=== PATIENT | female | born 1985 | race Caucasian/White ===

== ENCOUNTER 2024-01-28 12:30 | Emergency (ER) | payer BC ==
[2024-01-28] MEDS: hydrOXYzine HCl 25 MG Tab PO ONE (13:05)
[2024-01-28] MEDS: Take Home: hydrOXYzine HCl 25 MG Tab, 4 Tab Pack PO ONE (13:05)
== END 2024-01-28 14:00 | disposition home or self-care (01) ==
LOC: CC.ED 12:30
DX: F41.0 Panic disorder [episodic paroxysmal anxiety] (principal)
CPT/HCPCS: 93005; 99283; A9270-GY